=== PATIENT | female | born 1970 | race Caucasian/White ===

== ENCOUNTER → 2019-07-18 08:04 | Outpatient (CLI) | payer OTHER, SELFPAY ==
--- NOTE | ~2019-07-18 | MR_ITS ---
EXAMINATION: MR lumbar spine wo [facility] EXAM DATE: 07/18/2019 08:49 INDICATION: Low back pain, burning, left-sided leg pain. TECHNIQUE: Multi-sequential, multiplanar MR images of the lumbar spine were obtained without contrast . Sagittal T1, T2, T2 fat saturation images. Axial T2 weighted images. There is no prior study for comparison. FINDINGS: L4-5 level has posterior and interbody fusion, laminectomies. There is chronic mild to mode rate compression fracture of L1 which has been treated with vertebroplasty. The conus medullaris term inates at the L1/2 level and has normal signal intensity and morphology. There is mild to moderate d isc disease L5-S1 with 4 mm retrolisthesis. Mild disc disease L2-3 and L3-4. Paraspinal soft tissue i s unremarkable. Level by level evaluation: T12-L1: There is a minimal diffuse disc bulge. Facet arthropathy: Mild. Neural foraminal stenosis: No stenosis. Central canal stenosis: No stenosis. L1-L2: Disc does not extend beyond the endplate margin. Facet arthropathy: Mild. Neural foraminal stenosis: No stenosis. Central canal stenosis: No stenosis. L2-L3: There is a mild diffuse disc bulge. Facet arthropathy: Mild. Neural foraminal stenosis: Mild bilateral. Central canal stenosis: Mild. L3-L4: There is a mild diffuse disc bulge. Facet arthropathy: Moderate . Ligamentum flavum enlargement. Neural foraminal stenosis: Mild to moderate left, mild right. Central canal stenosis: Mild. L4-L5: This level is fused. Facet arthropathy: Fused. Neural foraminal stenosis: Mild bilateral. Central canal stenosis: Posterior decompression. L5-S1: There is a mild diffuse disc bulge. Facet arthropathy: Mild to moderate. Neural foraminal stenosis: Moderate bilateral. Central canal stenosis: Mild to moderate. IMPRESSION: 1. L5-S1 grade 1 retrolisthesis, moderate bilateral neural foraminal stenosis. 2. L4-5 fusion. Reviewed, dictated and finalized at location [facility]. [facility]
== END ==
PROVIDERS: PCP Family Medicine Adolescent Medicine; Visit Provider Family Medicine Adolescent Medicine
DX: M54.5 Low back pain (principal); M62.81 Muscle weakness (generalized); Z98.1 Arthrodesis status
CPT/HCPCS: 72148